=== PATIENT | female | born 1960 | race Caucasian/White ===

== ENCOUNTER → 2018-03-10 14:00 | Outpatient (CLI) | payer BC, SELFPAY ==
[2018-03-15 11:12] LABS: HPV Reflexed? NOT INDICATED
== END ==
PROVIDERS: Visit Provider Obstetrics & Gynecology
DX: Z01.419 Encounter for gynecological examination (general) (routine) without abnormal findings (principal)
CPT/HCPCS: 88175; G0145

== ENCOUNTER → 2019-05-12 10:53 | Outpatient (CLI) | payer BC, SELFPAY ==
[2019-05-13 11:15] LABS: Cancer Antigen 125 5.1 U/mL (0.0-38.1)
== END ==
PROVIDERS: Visit Provider Obstetrics & Gynecology
DX: Z12.73 Encounter for screening for malignant neoplasm of ovary (principal)
CPT/HCPCS: 36415; 86304

== ENCOUNTER → 2019-06-16 14:15 | Outpatient (CLI) | payer BC, SELFPAY ==
[2019-06-22 09:36] LABS: HPV Reflexed? NOT INDICATED
== END ==
PROVIDERS: Visit Provider Obstetrics & Gynecology
DX: Z12.4 Encounter for screening for malignant neoplasm of cervix (principal)
CPT/HCPCS: 88175; G0145